=== PATIENT | female | born 1975 | race African-American/Black ===

== ENCOUNTER 2022-03-13 19:40 | Emergency (ER) | payer OTHER ==
[~2022-03-13] VITALS: Ht 162.6 cm; Wt 85.6 kg
[2022-03-14] MEDS ORDERED: NS 1,000 ML IV ONE (07:35)
[2022-03-14 08:03] LABS: BASO % 0.4 % (0.0-1.0); EOS # 0.2 10^3/uL (0.0-0.5); EOS % 3.1 % (0.0-3.0); HEMATOCRIT 33.7 % (36.0-47.0); HEMOGLOBIN 10.6 g/dl (12.0-15.5); LYMPH # 1.8 10^3/uL (1.5-5.0); MEAN CORPUSCULAR HEMOGLOBIN 24.8 pg (27.0-33.0); MEAN CORPUSCULAR HGB CONC 31.5 g/dl (32.0-36.5); MEAN CORPUSCULAR VOLUME 78.9 fl (80.0-96.0); MONO # 0.6 10^3/uL (0.0-0.8); MONO % 7.9 % (2.0-8.0); NEUTROPHILS # 4.8 10^3/uL (1.5-8.5); NEUTROPHILS % 64.1 % (36.0-66.0); PLATELET COUNT, AUTOMATED 227 10^3/uL (150-450); RED BLOOD COUNT 4.27 10^6/uL (4.00-5.40); WHITE BLOOD COUNT 7.5 10^3/uL (4.0-10.0)
[2022-03-14] MEDS ORDERED: ISOVUE-370 76% 100ML VIAL As Ordered ONE (08:51)
[2022-03-14 09:01] LABS: ALBUMIN 3.6 GM/DL (3.2-5.2); BILIRUBIN,DIRECT 0.2 MG/DL (0.0-0.2); BILIRUBIN,TOTAL 0.7 MG/DL (0.2-1.0); FREE T4 1.05 NG/DL (0.76-1.46); THYROID STIMULATING HORMONE 2.13 uIU/ML (0.358-3.740); TOTAL PROTEIN 7.2 GM/DL (6.4-8.2)
[2022-03-14] MEDS ORDERED: METH-1164 PO (11:01)
[2022-03-14] MEDS ORDERED: LISI5TAB11 PO (11:01)
[2022-03-14 11:11] VITALS: BP 152/80
== END 2022-03-14 11:13 | disposition home or self-care (01) ==
LOC: M ED 19:40
DX: S13.4XXA Sprain of ligaments of cervical spine, initial encounter (principal); D38.3 Neoplasm of uncertain behavior of mediastinum; E04.1 Nontoxic single thyroid nodule; I10 Essential (primary) hypertension; V49.40XA Driver injured in collision with unspecified motor vehicles in traffic accident, initial encounter; Y92.410 Unspecified street and highway as the place of occurrence of the external cause; Y93.9 Activity, unspecified; Y99.9 Unspecified external cause status

== ENCOUNTER → 2022-04-17 | Outpatient (CLI) | payer OTHER ==
[~2022-04-17] MED LIST: ACETAMINOPHEN 325 MG TAB As Ordered ONE; ACETAMINOPHEN TAB 650MG DOSE (2X325MG) PO PRN; LIDOCAINE 1% MDV 20ML VIAL As Ordered ONE; LISI5TAB11 PO; METH-1164 PO
[2022-04-17 11:00] VITALS: BP 151/90
== END ==
LOC: M IRPRO 08:55
PROVIDERS: ATTEND Otolaryngology
DX: C73 Malignant neoplasm of thyroid gland (principal)

== ENCOUNTER → 2022-04-27 | Outpatient (CLI) | payer OTHER ==
[~2022-04-27] MED LIST changes: -ACETAMINOPHEN 325 MG TAB As Ordered ONE; -ACETAMINOPHEN TAB 650MG DOSE (2X325MG) PO PRN; -LIDOCAINE 1% MDV 20ML VIAL As Ordered ONE
== END ==
LOC: M PLAIMG 12:45
PROVIDERS: ATTEND Otolaryngology
DX: E04.1 Nontoxic single thyroid nodule (principal)

== ENCOUNTER → 2022-06-06 | Outpatient (CLI) | payer OTHER | LOC: M RAD 08:59 | PROVIDERS: ATTEND Otolaryngology | DX: C73 Malignant neoplasm of thyroid gland (principal) ==

== ENCOUNTER → 2022-06-08 | Outpatient (CLI) | payer OTHER ==
[~2022-06-08] MED LIST changes: +ISOVUE-370 76% 100ML VIAL As Ordered ONE
== END ==
LOC: M RAD 07:30
PROVIDERS: ATTEND Otolaryngology
DX: C73 Malignant neoplasm of thyroid gland (principal); R91.1 Solitary pulmonary nodule

== ENCOUNTER → 2022-07-26 | Outpatient (CLI) | payer OTHER ==
[~2022-07-26] MED LIST changes: -ISOVUE-370 76% 100ML VIAL As Ordered ONE
[2022-07-26 18:26] LABS: FREE T4 1.4 NG/DL (0.89-1.76)
[2022-07-26 18:27] LABS: THYROID STIMULATING HORMONE 0.108 uIU/ML (0.55-4.78)
== END ==
LOC: M PLALAB 14:36
PROVIDERS: ATTEND Nurse Practitioner Family
DX: E89.0 Postprocedural hypothyroidism (principal)

== ENCOUNTER → 2022-10-11 | Outpatient (CLI) | payer OTHER | LOC: M CARPUL 09:39 | PROVIDERS: ATTEND Family Medicine | DX: R06.02 Shortness of breath (principal) ==

== ENCOUNTER → 2022-10-26 | Outpatient (CLI) | payer OTHER ==
[~2022-10-26] MED LIST changes: +ISOVUE-370 76% 100ML VIAL As Ordered ONE
== END ==
LOC: M RAD 07:38
PROVIDERS: ATTEND Family Medicine
DX: R91.1 Solitary pulmonary nodule (principal)
CPT/HCPCS: 36415; 71260; 80048; 80076; 82607; 82728; 82746; 83550; 84433; 85025; 85652; 86140; 86480; Q9967

== ENCOUNTER → 2022-10-26 | Outpatient (CLI) | payer OTHER ==
[~2022-10-26] MED LIST changes: -ISOVUE-370 76% 100ML VIAL As Ordered ONE
[2022-10-26 08:29] LABS: BASO % 0.8 % (0.0-1.0); EOS # 0.2 10^3/uL (0.0-0.5); EOS % 3.5 % (0.0-3.0); HEMATOCRIT 33.5 % (36.0-47.0); HEMOGLOBIN 10.2 g/dl (12.0-15.5); LYMPH # 0.8 10^3/uL (1.5-5.0); LYMPH % 17.2 % (24.0-44.0); MEAN CORPUSCULAR HEMOGLOBIN 23.4 pg (27.0-33.0); MEAN CORPUSCULAR HGB CONC 30.4 g/dl (32.0-36.5); MEAN CORPUSCULAR VOLUME 76.8 fl (80.0-96.0); MONO # 0.5 10^3/uL (0.0-0.8); MONO % 9.7 % (2.0-8.0); NEUTROPHILS # 3.3 10^3/uL (1.5-8.5); NEUTROPHILS % 68.6 % (36.0-66.0); PLATELET COUNT, AUTOMATED 223 10^3/uL (150-450); RED BLOOD COUNT 4.36 10^6/uL (4.00-5.40); WHITE BLOOD COUNT 4.8 10^3/uL (4.0-10.0)
[2022-10-26 08:40] LABS: ERYTHROCYTE SEDIMENTATION RATE 30 mm/hr (0-20)
[2022-10-26 09:02] LABS: ALBUMIN 3.8 G/DL (3.2-5.2); ALKALINE PHOSPHATASE 65 U/L (46-116); ALT/SGPT 32 U/L (7.0-40); AST/SGOT 23 U/L (<34); BILIRUBIN,DIRECT 0.2 MG/DL (<0.4); BILIRUBIN,TOTAL 0.7 MG/DL (0.3-1.2); BLOOD UREA NITROGEN 16 MG/DL (9-23); CALCIUM LEVEL 10.7 MG/DL (8.5-10.1); CARBON DIOXIDE LEVEL 28 MMOL/L (20-31); CHLORIDE LEVEL 106 MMOL/L (98-107); CREATININE FOR GFR 0.86 MG/DL (0.55-1.30); GLOMERULAR FILTRATION RATE > 60.0 (>58); GLUCOSE, FASTING 102 MG/DL (60-100); IRON (FE) 33 UG/DL (50-170); PERCENT SATURATION 8.9 % (13.2-45.0); POTASSIUM SERUM 4.6 MMOL/L (3.5-5.1); SODIUM LEVEL 141 MMOL/L (136-145); TOTAL IRON BINDING CAPACITY 369 UG/DL (250-425)
[2022-10-26 09:03] LABS: FERRITIN 5.4 NG/ML (7.3-270.7); FOLATE 11.2 NG/ML (>5.4)
[2022-10-26 09:04] LABS: VITAMIN B12 LEVEL 295 PG/ML (211-911)
== END ==
LOC: M LAB 07:40
PROVIDERS: ATTEND Internal Medicine Gastroenterology
DX: K51.90 Ulcerative colitis, unspecified, without complications (principal)

== ENCOUNTER → 2022-12-01 | Outpatient (CLI) | payer OTHER ==
[2022-12-01 18:25] LABS: FREE T4 1.43 NG/DL (0.89-1.76); THYROID STIMULATING HORMONE 0.095 uIU/ML (0.55-4.78)
== END ==
LOC: M LAB 16:42
PROVIDERS: ATTEND Internal Medicine Endocrinology, Diabetes & Metabolism
DX: E89.0 Postprocedural hypothyroidism (principal); C73 Malignant neoplasm of thyroid gland

== ENCOUNTER 2022-12-25 11:49 | Day surgery (SDC) | payer OTHER ==
[~2022-12-25] VITALS: Ht 162.6 cm; Wt 83.0 kg
[~2022-12-25 11:49] MED LIST changes: +FAMO40TA3 PO; +LEVO125T4 PO; +NS 1,000 ML IV ONE
[2022-12-25] MEDS ORDERED: LIDOCAINE 2% 100MG/5ML SDV (FOR ANES.) As Ordered ONE (12:50)
[2022-12-25] MEDS ORDERED: propofoL 200 MG/20 ML VIAL As Ordered ONE ×2 (12:50→13:11)
[2022-12-25] MEDS ORDERED: GLYCOPYRROLATE INJ 0.2 MG/ML 2 ML VIAL As Ordered ONE (12:50)
[2022-12-25 13:32] VITALS: TEMP 96.6
[2022-12-25 13:52] VITALS: BP 110/65; O2SAT 99
== END 2022-12-25 13:56 | disposition home or self-care (01) ==
LOC: M OPP 11:49
PROVIDERS: ATTEND Internal Medicine Gastroenterology
DX: D12.6 Benign neoplasm of colon, unspecified (principal); K64.4 Residual hemorrhoidal skin tags; K64.8 Other hemorrhoids; D50.9 Iron deficiency anemia, unspecified; K21.00 Gastro-esophageal reflux disease with esophagitis, without bleeding; K29.70 Gastritis, unspecified, without bleeding; K44.9 Diaphragmatic hernia without obstruction or gangrene; Z87.891 Personal history of nicotine dependence; Z79.1 Long term (current) use of non-steroidal anti-inflammatories (NSAID); Z79.890 Hormone replacement therapy; Z79.899 Other long term (current) drug therapy

== ENCOUNTER → 2023-03-07 | Outpatient (CLI) | payer OTHER ==
[~2023-03-07] MED LIST changes: -NS 1,000 ML IV ONE
[2023-03-07 12:07] LABS: BASO % 0.5 % (0.0-1.0); EOS # 0.2 10^3/uL (0.0-0.5); EOS % 2.8 % (0.0-3.0); HEMATOCRIT 34.3 % (36.0-47.0); HEMOGLOBIN 10.7 g/dl (12.0-15.5); LYMPH # 0.8 10^3/uL (1.5-5.0); LYMPH % 14.6 % (24.0-44.0); MEAN CORPUSCULAR HEMOGLOBIN 24.4 pg (27.0-33.0); MEAN CORPUSCULAR HGB CONC 31.2 g/dl (32.0-36.5); MEAN CORPUSCULAR VOLUME 78.3 fl (80.0-96.0); MONO # 0.4 10^3/uL (0.0-0.8); MONO % 7.5 % (2.0-8.0); NEUTROPHILS # 4.2 10^3/uL (1.5-8.5); NEUTROPHILS % 74.4 % (36.0-66.0); PLATELET COUNT, AUTOMATED 234 10^3/uL (150-450); RED BLOOD COUNT 4.38 10^6/uL (4.00-5.40); WHITE BLOOD COUNT 5.7 10^3/uL (4.0-10.0)
[2023-03-07 12:28] LABS: BLOOD UREA NITROGEN 9 MG/DL (9-23); CREATININE FOR GFR 0.79 MG/DL (0.55-1.30); GLOMERULAR FILTRATION RATE > 60.0 (>58); IRON (FE) 339 UG/DL (50-170); TOTAL IRON BINDING CAPACITY 381 UG/DL (250-425)
[2023-03-07 12:32] LABS: FERRITIN 11.3 NG/ML (7.3-270.7); FOLATE 9.7 NG/ML (>5.4)
[2023-03-07 12:33] LABS: VITAMIN B12 LEVEL 366 PG/ML (211-911)
== END ==
LOC: M LAB 11:28
PROVIDERS: ATTEND Internal Medicine Gastroenterology
DX: D50.9 Iron deficiency anemia, unspecified (principal); K58.9 Irritable bowel syndrome, unspecified

== ENCOUNTER → 2023-04-06 | Outpatient (CLI) | payer OTHER ==
[2023-04-06 13:14] LABS: BASO % 0.5 % (0.0-1.0); EOS # 0.2 10^3/uL (0.0-0.5); EOS % 3.7 % (0.0-3.0); HEMATOCRIT 36.2 % (36.0-47.0); HEMOGLOBIN 11.2 g/dl (12.0-15.5); LYMPH # 1.5 10^3/uL (1.5-5.0); LYMPH % 25.8 % (24.0-44.0); MEAN CORPUSCULAR HEMOGLOBIN 25.7 pg (27.0-33.0); MEAN CORPUSCULAR HGB CONC 30.9 g/dl (32.0-36.5); MEAN CORPUSCULAR VOLUME 83.2 fl (80.0-96.0); MONO # 0.4 10^3/uL (0.0-0.8); MONO % 7.7 % (2.0-8.0); NEUTROPHILS # 3.5 10^3/uL (1.5-8.5); NEUTROPHILS % 62.1 % (36.0-66.0); PLATELET COUNT, AUTOMATED 225 10^3/uL (150-450); RED BLOOD COUNT 4.35 10^6/uL (4.00-5.40); WHITE BLOOD COUNT 5.6 10^3/uL (4.0-10.0)
[2023-04-06 13:21] LABS: ERYTHROCYTE SEDIMENTATION RATE 30 mm/hr (0-20)
== END ==
LOC: M PLALAB 09:39
PROVIDERS: ATTEND Nurse Practitioner Adult Health
DX: M26.622 Arthralgia of left temporomandibular joint (principal)

== ENCOUNTER → 2023-04-19 | Outpatient (CLI) | payer OTHER ==
[~2023-04-19] MED LIST changes: +ISOVUE-370 76% 100ML VIAL ONE
== END ==
LOC: M PLAIMG 13:50
PROVIDERS: ATTEND Nurse Practitioner Adult Health
DX: H92.02 Otalgia, left ear (principal); M26.622 Arthralgia of left temporomandibular joint; H66.92 Otitis media, unspecified, left ear
CPT/HCPCS: 70482; Q9967

== ENCOUNTER → 2023-04-19 | Outpatient (CLI) | payer OTHER ==
[~2023-04-19] MED LIST changes: -ISOVUE-370 76% 100ML VIAL ONE
[2023-04-19 16:13] LABS: HEMATOCRIT 34.2 % (36.0-47.0); HEMOGLOBIN 10.9 g/dl (12.0-15.5); MEAN CORPUSCULAR HEMOGLOBIN 25.6 pg (27.0-33.0); MEAN CORPUSCULAR HGB CONC 31.9 g/dl (32.0-36.5); MEAN CORPUSCULAR VOLUME 80.5 fl (80.0-96.0); PLATELET COUNT, AUTOMATED 243 10^3/uL (150-450); RED BLOOD COUNT 4.25 10^6/uL (4.00-5.40); WHITE BLOOD COUNT 6.1 10^3/uL (4.0-10.0)
[2023-04-19 16:38] LABS: FREE T4 1.55 NG/DL (0.89-1.76); THYROID STIMULATING HORMONE 0.143 uIU/ML (0.55-4.78); THYROXINE (T4) 15.2 UG/DL (4.5-10.9); TOTAL T3 139.5 NG/DL (60.0-181.0)
== END ==
LOC: M PLALAB 13:54
PROVIDERS: ATTEND Obstetrics & Gynecology Obstetrics
DX: C73 Malignant neoplasm of thyroid gland (principal); N93.9 Abnormal uterine and vaginal bleeding, unspecified

== ENCOUNTER → 2023-07-05 | Outpatient (CLI) | payer OTHER ==
[2023-07-05 13:21] LABS: BASO % 0.5 % (0.0-1.0); EOS # 0.1 10^3/uL (0.0-0.5); EOS % 2.2 % (0.0-3.0); HEMATOCRIT 37.8 % (36.0-47.0); HEMOGLOBIN 12.6 g/dl (12.0-15.5); LYMPH # 1.7 10^3/uL (1.5-5.0); LYMPH % 26.6 % (24.0-44.0); MEAN CORPUSCULAR HEMOGLOBIN 27.9 pg (27.0-33.0); MEAN CORPUSCULAR HGB CONC 33.3 g/dl (32.0-36.5); MEAN CORPUSCULAR VOLUME 83.6 fl (80.0-96.0); MONO # 0.5 10^3/uL (0.0-0.8); MONO % 7.8 % (2.0-8.0); NEUTROPHILS # 3.9 10^3/uL (1.5-8.5); NEUTROPHILS % 62.7 % (36.0-66.0); PLATELET COUNT, AUTOMATED 226 10^3/uL (150-450); RED BLOOD COUNT 4.52 10^6/uL (4.00-5.40); WHITE BLOOD COUNT 6.3 10^3/uL (4.0-10.0)
[2023-07-05 13:46] LABS: ALBUMIN 3.6 G/DL (3.2-5.2); ALKALINE PHOSPHATASE 57 U/L (46-116); ALT/SGPT 28 U/L (7.0-40); AST/SGOT 25 U/L (<34); BILIRUBIN,TOTAL 0.8 MG/DL (0.3-1.2); BLOOD UREA NITROGEN 14 MG/DL (9-23); CALCIUM LEVEL 8.5 MG/DL (8.5-10.1); CARBON DIOXIDE LEVEL 26 MMOL/L (20-31); CHLORIDE LEVEL 108 MMOL/L (98-107); CHOLESTEROL LEVEL 199 MG/DL (<200); CHOLESTEROL RISK RATIO 2.64 (<5); CREATININE FOR GFR 0.89 MG/DL (0.55-1.30); GLOMERULAR FILTRATION RATE > 60.0 (>58); GLUCOSE, FASTING 81 MG/DL (60-100); HDL CHOLESTEROL 75.1 MG/DL (>40); IRON (FE) 47 UG/DL (50-170); LDL CHOLESTEROL 109.9 MG/DL (<100); NON-HDL-C 123.9 MG/DL; PERCENT SATURATION 14.2 % (13.2-45.0); SODIUM LEVEL 140 MMOL/L (136-145); TOTAL IRON BINDING CAPACITY 330 UG/DL (250-425); TOTAL PROTEIN 6.8 G/DL (5.7-8.2); TRIGLYCERIDES LEVEL 70 MG/DL (<150)
[2023-07-05 13:47] LABS: FERRITIN 53.2 NG/ML (7.3-270.7)
[2023-07-05 13:48] LABS: FOLATE 11.2 NG/ML (>5.4); VITAMIN B12 LEVEL 420 PG/ML (211-911)
== END ==
LOC: M PLALAB 10:29
PROVIDERS: ATTEND Family Medicine
DX: D50.9 Iron deficiency anemia, unspecified (principal)

== ENCOUNTER → 2023-08-22 | Outpatient (CLI) | payer OTHER ==
[2023-08-23 11:09] LABS: THRYOGLOBULIN ANTIBODIES (ATA) < 1.0 IU/mL (0.0-0.9); THYROGLOBULIN QUANTITATIVE < 0.1 ng/mL (1.5-38.5)
== END ==
LOC: M LAB 13:21
PROVIDERS: ATTEND Internal Medicine Endocrinology, Diabetes & Metabolism
DX: E89.0 Postprocedural hypothyroidism (principal)

== ENCOUNTER → 2023-10-11 | Outpatient (CLI) | payer OTHER | LOC: M LAB 16:48 | PROVIDERS: ATTEND Internal Medicine Endocrinology, Diabetes & Metabolism | DX: E89.0 Postprocedural hypothyroidism (principal) ==

== ENCOUNTER → 2024-02-07 | Outpatient (CLI) | payer OTHER ==
[2024-02-08 15:33] LABS: THRYOGLOBULIN ANTIBODIES (ATA) < 1 IU/mL (< or = 1); THYROGLOBULIN QUANTITATIVE 0.2 ng/mL (2.8-40.9)
== END ==
LOC: M LAB 13:54
PROVIDERS: ATTEND Nurse Practitioner Family
DX: C73 Malignant neoplasm of thyroid gland (principal)

== ENCOUNTER → 2024-04-08 | Outpatient (CLI) | payer OTHER | LOC: M RAD 11:54 | PROVIDERS: ATTEND Nurse Practitioner Family | DX: E89.0 Postprocedural hypothyroidism (principal) ==

== ENCOUNTER → 2024-05-05 | Outpatient (CLI) | payer OTHER ==
[2024-05-05 18:26] LABS: THYROID STIMULATING HORMONE 0.568 uIU/ML (0.55-4.78)
[2024-05-05 18:27] LABS: FREE T4 1.35 NG/DL (0.89-1.76)
== END ==
LOC: M LAB 16:16
PROVIDERS: ATTEND Nurse Practitioner Family
DX: E89.0 Postprocedural hypothyroidism (principal)

== ENCOUNTER → 2024-05-14 | Outpatient (REF) | payer OTHER | LOC: M LAB REF 12:27 | PROVIDERS: ATTEND Nurse Practitioner Family | DX: K51.90 Ulcerative colitis, unspecified, without complications (principal) ==

== ENCOUNTER → 2024-05-14 | Outpatient (CLI) | payer OTHER | LOC: M SLEEP HO 02-21 10:39 | PROVIDERS: ATTEND Nurse Practitioner Adult Health | DX: R53.83 Other fatigue (principal) ==

== ENCOUNTER → 2024-07-15 | Outpatient (CLI) | payer OTHER | LOC: M PLAIMG 15:38 | PROVIDERS: ATTEND Family Medicine | DX: M54.2 Cervicalgia (principal) ==

== ENCOUNTER → 2024-11-21 | Outpatient (CLI) | payer OTHER ==
[2024-11-21 15:52] LABS: FREE T4 1.91 NG/DL (0.89-1.76)
== END ==
LOC: M PLALAB 11:37
PROVIDERS: ATTEND Nurse Practitioner Family
DX: E89.0 Postprocedural hypothyroidism (principal)

== ENCOUNTER → 2025-01-26 | Outpatient (CLI) | payer OTHER ==
[2025-01-26 11:43] LABS: FREE T4 1.78 NG/DL (0.89-1.76)
== END ==
LOC: M LAB 10:24
PROVIDERS: ATTEND Nurse Practitioner Family
DX: E89.0 Postprocedural hypothyroidism (principal); C73 Malignant neoplasm of thyroid gland

== ENCOUNTER → 2025-02-10 | Outpatient (CLI) | payer OTHER | LOC: M RAD 16:11 | PROVIDERS: ATTEND Nurse Practitioner Family | DX: C73 Malignant neoplasm of thyroid gland (principal) ==